=== PATIENT | male | born 1980 | race Caucasian/White ===

== ENCOUNTER 2024-01-04 16:10 | Emergency (ER) | payer OTHER, SELFPAY ==
[2024-01-04 16:18] VITALS: BP 150/89; PULSE 113; RESP 20; TEMP 36.3; O2SAT 99
--- NOTE | 2024-01-04 16:46 | ED.GENADULT ---
HPI - General Adult General Chief complaint: Extremity Problem,Nontraumatic Stated complaint: Right Thumb Time Seen by Provider: 01/04/24 16:33 Source: patient, RN notes reviewed and old records reviewed Mode of arrival: ambulatory (then to wheelchair) Limitations: no limitations History of Present Illness HPI narrative: 43 year old male accompanied by cousin presents to express care with complaints of pulling a cuticle to the side of his right thumb a few days and has developed a blistered swollen area to the upper nail bed of thumb since last night. Patient reports that he is having pain to his right thumb with swelling of his distal thumb around nail bed. Patient has not taken any taken any OTC medications for his pain. Patient is diabetic and on insulin,has peripheral neuropathy, has had C5-6 fusion. Patient reports that he is able to get up and walk some at home but mainly in bed lying down, he does live with family member. Patient is very unkept, smells, and has black crusted matter under all fingernails. Patient is right hand dominant. MD complaint: paronychia Onset (ago): day(s) (2-3 days) Location: head (right thumb) Severity scale (1-10): 5 Treatments prior to arrival: none Related Data Home Medications Medication Instructions Recorded Confirmed amlodipine 5 mg-benazepril 20 mg 1 cap PO Q48H 01/04/24 01/04/24 capsule atorvastatin 40 mg tablet 40 mg PO DAILY 01/04/24 01/04/24 baclofen 10 mg tablet 10 mg PO TID PRN Spasms 01/04/24 01/04/24 glimepiride 4 mg tablet 4 mg PO QAM 01/04/24 01/04/24 insulin detemir U-100 100 unit/mL 12 unit subcut DAILY 01/04/24 01/04/24 subcutaneous solution (Levemir U-100 Insulin) lancets 30 gauge (OneTouch Delica 01/04/24 01/04/24 Plus Lancet) metformin 1,000 mg tablet 1,000 mg PO BID 01/04/24 01/04/24 naproxen 500 mg tablet 500 mg PO BID 01/04/24 01/04/24 omeprazole 20 mg capsule,delayed 20 mg PO DAILY 01/04/24 01/04/24 release pen needle, diabetic 31 gauge x 01/04/24 01/04/24 5/16 (TRUEplus Pen Needle) pregabalin 100 mg capsule 100 mg PO DAILY 01/04/24 01/04/24 Allergies Allergy/AdvReac Type Severity Reaction Status Date / Time topiramate [From Topamax] AdvReac Intermediate Other Verified 01/04/24 16:40 Review of Systems Review of Systems: CONSTITUTIONAL: Denies fever, chills, or sweats. CARDIOVASCULAR: Denies chest pain, palpitations, or edema. RESPIRATORY: Denies cough or dyspnea. GASTROINTESTINAL: Denies abdominal pain, nausea, vomiting SKIN: Reports redness and swelling with raised lesion to the medial aspect of his right thumb along nail bed. states originally pulled on cuticle of nail then awoke with swollen fluid filled blister along nail bed MUSCULOSKELETAL: Denies myalgia. NEUROLOGIC: Denies headache, numbness All systems reviewed & are unremarkable except as noted in HPI and below PMFSH Past Medical History Medical History (Updated 01/06/24 @ 16:45 by Lotus Shrestha NP) Diabetes Elevated cholesterol Fusion of spine of cervical region C5-6 GERD (gastroesophageal reflux disease) Hypertension Neuropathy Surgical History Surgical History (Updated 01/06/24 @ 16:42 by Lotus Shrestha NP) Hx of cholecystectomy Hx of tonsillectomy Social History Social History (Updated 01/06/24 @ 16:40 by Lotus Shrestha NP) Substance use: current Substance use type: marijuana Living arrangements: with family Gender identity (if verbalized by the patient): Male Comments At time of signature, agree with nursing past medical, surgical, social and family history. There is no relevant family history pertinent to the presenting complaint Exam Narrative: GENERAL: Well-appearing, well-nourished, and in no acute distress. HEAD: Normocephalic, atraumatic. EYES: PERRLA and EOMI. ENT: Nares clear, no rhinorrhea or epistaxis. Mucous membranes moist. NECK: Supple. no lymphadenopathy CHEST: Clear to auscultation. No respiratory distress. SAO2 9
== END 2024-01-04 17:00 | disposition home or self-care (01) ==
PROVIDERS: Emergency Provider Registered Nurse
DX: L03.011 Cellulitis of right finger (principal); F12.90 Cannabis use, unspecified, uncomplicated; E11.42 Type 2 diabetes mellitus with diabetic polyneuropathy; Z79.4 Long term (current) use of insulin; Z79.84 Long term (current) use of oral hypoglycemic drugs; E78.00 Pure hypercholesterolemia, unspecified; K21.9 Gastro-esophageal reflux disease without esophagitis; I10 Essential (primary) hypertension
CPT/HCPCS: 10160; 99213; G0463